=== PATIENT | female | born 1980 | race Caucasian/White ===

== ENCOUNTER 2024-01-30 04:17 | Day surgery (SDC) | payer BC, OTHER ==
[2024-01-27 13:05] VITALS: BMI 27.3
[2024-01-30] MEDS ORDERED: LIDOCAINE 1%/EPI 1:100000 (20 ML MULTI DOSE VIAL) ONE (10:02)
[2024-01-30] MEDS ORDERED: PROPOFOL 20 ML ONE ×4 (10:43→13:32)
[2024-01-30] MEDS ORDERED: MIDAZOLAM HCL 2 MG/2 ML SINGLE DOSE VIAL ONE (10:45)
[2024-01-30] MEDS ORDERED: ROCURONIUM BROMIDE 50 MG/5 ML SYRINGE ONE (10:45)
[2024-01-30] MEDS ORDERED: SUGAMMADEX SODIUM 200 MG/2 ML VIAL ONE ×2 (11:11→13:56)
[2024-01-30] MEDS ORDERED: LIDOCAINE 1%/EPI 1:100000 (20 ML MULTI DOSE VIAL) INF ONE (11:59)
[2024-01-30] MEDS ORDERED: BACITRACIN ZINC 15 GM TUBE TOPICAL OINTMENT ONE (12:39)
[2024-01-30] MEDS ORDERED: OXYMETAZOLINE 0.05% NASAL SOLUTION 15 ML BOTTLE NS PRN (13:12)
[2024-01-30] MEDS: LIDOCAINE 1%/EPI 1:100000 (50 ML MULTI DOSE VIAL) INF ONE ×2 (13:26)
[2024-01-30] MEDS: OXYMETAZOLINE 0.05% NASAL SOLUTION 15 ML BOTTLE NS ONE (13:27)
[2024-01-30] MEDS ORDERED: ONDANSETRON 4 MG/2 ML VIAL ONE (13:47)
[2024-01-30] MEDS: BACITRACIN ZINC 15 GM TUBE TOPICAL OINTMENT TP ONE (13:49)
[2024-01-30] MEDS: LACTATED RINGERS SOLUTION 1,000 ML IV SCH (14:02)
[2024-01-30] MEDS ORDERED: HALOPERIDOL LACTATE 5 MG/ML IVPUSH ONE (15:00)
[2024-01-30] MEDS ORDERED: HALOPERIDOL LACTATE 5 MG/ML ONE (15:07)
[2024-01-30] MEDS: HALOPERIDOL LACTATE 5 MG/ML IVPUSH ONE (15:11)
[2024-01-30] MEDS: oxyCODONE HCL 5 MG TABLET PO PRN (16:23)
[2024-01-30] MEDS ORDERED: oxyCODONE HCL 5 MG TABLET ONE (16:25)
[2024-01-30 19:41] VITALS: RESP 20; TEMP 97.3
[2024-01-30 19:44] VITALS: BP 99/67; PULSE 70
== END 2024-01-30 16:45 | disposition home or self-care (01) ==
LOC: JASU-SURG 04:17
PROVIDERS: ATTEND Otolaryngology
PROC: 09SM0ZZ Reposition Nasal Septum, Open Approach (ICD-10-PCS; 2024-01-30)
PROC: 09BV0ZZ Excision of Left Ethmoid Sinus, Open Approach (ICD-10-PCS; 2024-01-30)
PROC: 09BU0ZZ Excision of Right Ethmoid Sinus, Open Approach (ICD-10-PCS; 2024-01-30)
PROC: 09BT8ZZ Excision of Left Frontal Sinus, Via Natural or Artificial Opening Endoscopic (ICD-10-PCS; 2024-01-30)
PROC: 09BS8ZZ Excision of Right Frontal Sinus, Via Natural or Artificial Opening Endoscopic (ICD-10-PCS; 2024-01-30)
PROC: 09BX8ZZ Excision of Left Sphenoid Sinus, Via Natural or Artificial Opening Endoscopic (ICD-10-PCS; 2024-01-30)
PROC: 09BW8ZZ Excision of Right Sphenoid Sinus, Via Natural or Artificial Opening Endoscopic (ICD-10-PCS; 2024-01-30)
PROC: 099R7ZZ Drainage of Left Maxillary Sinus, Via Natural or Artificial Opening (ICD-10-PCS; principal; 2024-01-30 11:00)
DX: J32.4 Chronic pansinusitis (principal); R09.81 Nasal congestion; J34.2 Deviated nasal septum; J34.3 Hypertrophy of nasal turbinates
CPT/HCPCS: 81025; 88304-TC; 88305-TC; 88311-TC; 94760